=== PATIENT | female | born 1995 | race Caucasian/White ===

== ENCOUNTER 2019-08-21 10:11 | Emergency (ER) | payer SELFPAY ==
[~2019-08-21] VITALS: Ht 152.4 cm; Wt 57.2 kg
[2019-08-21 10:15] VITALS: BP 137/92
--- NOTE | 2019-08-21 10:22 | NUR ---
patient arrives to er , not sure how far along. she was at ob upstairs yesterday and had pap which showed light bleeding. then went home but bleeding got worse last night, she reports ben red blood about 1 pad an hour since last night.
--- NOTE | 2019-08-21 10:25 | NUR ---
ob is concerned that patient has blighted ovum
[2019-08-21] MEDS ORDERED: DIAZ10TA4 PO (10:29)
[2019-08-21] MEDS ORDERED: BUPR-86 PO (10:29)
--- NOTE | 2019-08-21 10:52 | NUR ---
straight cath'd patient and sent to lab labeled in her presence. patient has significant bleeding noted in [place] area.
--- NOTE | 2019-08-21 11:12 | NUR ---
patient off to ultrasound with tech
[2019-08-21 11:25] LABS: MICROSCOPIC NOT IND
[2019-08-21 11:32] LABS: BASOPHILS # (AUTO) 0.09 x10^3/uL (0-0.1); BASOPHILS % (AUTO) 1 % (0-1); EOSINOPHILS # (AUTO) 0.01 x10^3/uL (0-0.4); EOSINOPHILS % (AUTO) 0 % (1-7); LYMPHOCYTES # (AUTO) 1.34 x10^3/uL (1-3.4); LYMPHOCYTES % (AUTO) 9 % (22-44); MD NO; MEAN CORPUSCULAR HGB CONC 33.6 g/dL (32.4-35.8); MEAN CORPUSCULAR VOLUME 89.3 fL (80-100); MEAN PLATELET VOLUME 7.8 fL (7.4-10.4); MONOCYTES # (AUTO) 0.77 x10^3/uL (0.2-0.8); MONOCYTES % (AUTO) 5 % (2-9); NEUTROPHILS % (AUTO) 85 % (42-75); PLATELET COUNT 507 x10^3/uL (130-400); RED BLOOD COUNT 4.75 x10^6/uL (3.82-5.3); RED CELL DISTRIBUTION WIDTH 12.8 % (9.6-15.2)
[2019-08-21 11:33] LABS: CULTURE INDICATED? NO
[2019-08-21 11:42] LABS: ALBUMIN 3.9 g/dL (3.4-5.0); ANION GAP 6 mmol/L (5-15); CALCIUM 8.6 mg/dL (8.5-10.1); CHLORIDE 105 mmol/L (98-107)
[2019-08-21 12:00] LABS: ALANINE AMINOTRANSFERASE 21 U/L (12-78); ALKALINE PHOSPHATASE 78 U/L (45-117); BILIRUBIN,TOTAL 0.5 mg/dL (0.2-1.0); CREATININE 0.87 mg/dL (0.55-1.02); TOTAL PROTEIN 8.1 g/dL (6.4-8.2)
--- NOTE | 2019-08-21 12:38 | NUR ---
Patient/Caregiver given discharge instructions and they have confirmed that they understand the instructions. Patient ambulatory with steady gait.
== END 2019-08-21 12:47 | disposition home or self-care (01) ==
LOC: ED 12:41
DX: O46.90 Antepartum hemorrhage, unspecified, unspecified trimester (principal); Z3A.00 Weeks of gestation of pregnancy not specified
CPT/HCPCS: 36415; 76801; 80053; 81003; 84702; 85025; 99284

== ENCOUNTER 2020-04-26 15:51 | Emergency (ER) | payer OTHER ==
[~2020-04-26] VITALS: Ht 152.4 cm; Wt 55.4 kg
[~2020-04-26 15:51] MED LIST: BUPR-86 PO; DIAZ10TA4 PO
--- NOTE | 2020-04-26 16:19 | NUR ---
C/O MORNING SICKNESS WITH N/V X1 WEEK, 9 WEEKS , STATES SHE'S WORSEN OVER THE LAST 4 DAYS.
[2020-04-26] MEDS ORDERED: SODIUM CHLORIDE 0.9% 1,000ML IVBOLUS ONE (16:30)
[2020-04-26] MEDS ORDERED: ONDANSETRON 2MG/ML, 2ML IVPush ONE (16:30)
[2020-04-26] MEDS ORDERED: ONDANSETRON 2MG/ML, 2ML ONE (16:36)
[2020-04-26 16:44] LABS: BASOPHILS % (AUTO) 0 % (0-1); EOSINOPHILS % (AUTO) 0 % (1-7); LYMPHOCYTES % (AUTO) 11 % (22-44); MEAN CORPUSCULAR HEMOGLOBIN 28.5 pg (27.0-34.8); MEAN CORPUSCULAR HGB CONC 33.3 g/dL (32.4-35.8); MEAN PLATELET VOLUME 7.5 fL (7.4-10.4); MONOCYTES % (AUTO) 6 % (2-9); NEUTROPHILS % (AUTO) 82 % (42-75); PLATELET COUNT 530 x10^3/uL (130-400); RED CELL DISTRIBUTION WIDTH 12.5 % (9.6-15.2)
[2020-04-26 16:51] LABS: ALANINE AMINOTRANSFERASE 34 U/L (12-78); ALBUMIN 3.8 g/dL (3.4-5.0); ANION GAP 11 mmol/L (5-15); CALCIUM 9.5 mg/dL (8.5-10.1); CHLORIDE 103 mmol/L (98-107); CREATININE 0.64 mg/dL (0.55-1.02)
[2020-04-26 16:58] LABS: MICROSCOPIC INDICATED
[2020-04-26 17:05] LABS: MD SCAN
[2020-04-26 17:09] LABS: ALKALINE PHOSPHATASE 72 U/L (45-117); BILIRUBIN,TOTAL 0.5 mg/dL (0.2-1.0); TOTAL PROTEIN 8.2 g/dL (6.4-8.2)
[2020-04-26 18:23] LABS: MICROSCOPIC NOT IND
[2020-04-26 19:00] VITALS: BP 92/55
== END 2020-04-26 19:24 | disposition home or self-care (01) ==
LOC: ED 19:00
DX: O21.1 Hyperemesis gravidarum with metabolic disturbance (principal); R94.31 Abnormal electrocardiogram [ECG] [EKG]; Z3A.09 9 weeks gestation of pregnancy
CPT/HCPCS: 36415; 76801; 80053; 81001; 81003; 84702; 85025; 87086; 93005; 96361; 96374; 99285; J2405; J7030

== ENCOUNTER 2020-11-17 22:19 | Inpatient (IN) | payer OTHER ==
[~2020-11-17] VITALS: Ht 153.2 cm; Wt 77.0 kg
[2020-11-17] MEDS ORDERED: NEWBORN KIT ONE (22:43)
[2020-11-17] MEDS ORDERED: LIDOCAINE 1%, 20ML ONE (22:43)
[2020-11-17] MEDS ORDERED: MISOPROSTOL 200 MCG TABLET ONE (22:44)
[2020-11-17] MEDS ORDERED: OXYTOCIN 30U/ 0.9% NaCL 500ML 500 ML ONE (22:44)
[2020-11-17] MEDS ORDERED: FENTANYL PF 100 MCG/2ML ONE (22:55)
[2020-11-17] MEDS ORDERED: FENTANYL PF 100 MCG/2ML IV PRN (23:00)
[2020-11-17] MEDS ORDERED: LACTATED RINGERS 1,000 ML IV SCH (23:00)
[2020-11-17] MEDS ORDERED: SODIUM CHLORIDE FLUSH 10ML SYR IVF PRN (23:00)
[2020-11-17] MEDS ORDERED: CALCIUM CARBONATE 500 MG TAB.CHEW PO PRN (23:00)
[2020-11-17] MEDS ORDERED: ALUMINUM/MAG/SIMETHICONE 30 ML UDC PO PRN (23:00)
[2020-11-17] MEDS ORDERED: ONDANSETRON 2MG/ML, 2ML IVPush PRN (23:00)
[2020-11-17] MEDS: PLEASE ENTER HEIGHT AND WEIGHT MC SCH (23:00)
[2020-11-17] MEDS ORDERED: METOCLOPRAMIDE 5 MG/ML, 2ML IVPush PRN (23:00)
[2020-11-17] MEDS ORDERED: SODIUM CITRATE/CITRIC ACID 30 ML UDC PO PRN (23:00)
[2020-11-17] MEDS ORDERED: FENTANYL PF 100 MCG/2ML IVPush PRN (23:00)
[2020-11-17] MEDS ORDERED: D5%-LACTATED RINGERS 1,000 ML IV SCH (23:00)
[2020-11-17] MEDS ORDERED: TERBUTALINE 1 MG/ML, 1ML IVPush PRN (23:00)
[2020-11-17] MEDS ORDERED: OXYTOCIN 30U/ 0.9% NaCL 500ML 500 ML IV ONE (23:00)
[2020-11-17] MEDS ORDERED: TERBUTALINE 1 MG/ML, 1ML SQ PRN (23:00)
[2020-11-17 23:12] LABS: BASOPHILS % (AUTO) 0 % (0-1); EOSINOPHILS % (AUTO) 0 % (1-7); LYMPHOCYTES % (AUTO) 13 % (22-44); MEAN CORPUSCULAR HEMOGLOBIN 28.7 pg (27.0-34.8); MEAN CORPUSCULAR HGB CONC 33.5 g/dL (32.4-35.8); MEAN PLATELET VOLUME 8.1 fL (7.4-10.4); MONOCYTES % (AUTO) 7 % (2-9); NEUTROPHILS % (AUTO) 79 % (42-75); PLATELET COUNT 365 x10^3/uL (130-400); RED BLOOD COUNT 3.98 x10^6/uL (3.82-5.3); RED CELL DISTRIBUTION WIDTH 13.1 % (9.6-15.2)
[2020-11-17 23:13] LABS: MD NO
[2020-11-17] MEDS ORDERED: FENTANYL/BUPIV./NS/PF 250 ML EPIDCONT ONE (23:36)
[2020-11-17] MEDS ORDERED: BUPIVACAINE 0.25% ONE (23:36)
[2020-11-18] MEDS ORDERED: EPHEDRINE 50 MG/ML, 1ML IVPush PRN
[2020-11-18] MEDS ORDERED: NALOXONE 0.4 MG/ML, 1ML IVPush PRN
[2020-11-18] MEDS ORDERED: LACTATED RINGERS 1,000 ML IVBOLUS PRN
[2020-11-18] MEDS ORDERED: FENTANYL/BUPIV./NS/PF 250 ML EPIDCONT SCH
[2020-11-18] MEDS: OXYTOCIN 30U/ 0.9% NaCL 500ML 500 ML IV SCH ×3 (00:40→21:00)
[2020-11-18] MEDS ORDERED: ONDANSETRON 2MG/ML, 2ML IV PRN (01:00)
[2020-11-18] MEDS ORDERED: MISOPROSTOL 200 MCG TABLET PR PRN (01:00)
[2020-11-18] MEDS ORDERED: ACETAMINOPHEN 325 MG TABLET PO PRN (01:00)
[2020-11-18] MEDS ORDERED: METHYLERGONOVINE 0.2 MG/ML IM PRN (01:00)
[2020-11-18] MEDS ORDERED: OXYcodone/APAP 5/325MG TABLET PO PRN ×2 (01:00)
[2020-11-18] MEDS ORDERED: SIMETHICONE 80 MG CHEW TAB PO PRN (01:00)
[2020-11-18 03:00] VITALS: BP 117/76
[2020-11-18 07:00] VITALS: BP 107/70
[2020-11-18] MEDS: PLEASE ENTER HEIGHT AND WEIGHT MC SCH ×3 (07:00→23:00)
[2020-11-18 07:35] VITALS: BP 111/75
[2020-11-18] MEDS: LACTATED RINGERS 1,000 ML IV SCH ×3 (08:00→16:00)
[2020-11-18] MEDS: DOCUSATE 100 MG CAPSULE PO PRN (08:00)
[2020-11-18] MEDS: PRENATAL VIT/IRON/FA 1 EACH TABLET PO SCH (08:00)
[2020-11-18] MEDS: IBUPROFEN 800 MG TABLET PO PRN ×2 (08:00→15:36)
[2020-11-18 08:53] LABS: BASOPHILS % (AUTO) 0 % (0-1); EOSINOPHILS % (AUTO) 0 % (1-7); LYMPHOCYTES % (AUTO) 12 % (22-44); MEAN CORPUSCULAR HGB CONC 33.6 g/dL (32.4-35.8); MEAN PLATELET VOLUME 8.2 fL (7.4-10.4); MONOCYTES % (AUTO) 7 % (2-9); NEUTROPHILS % (AUTO) 81 % (42-75); PLATELET COUNT 316 x10^3/uL (130-400); RED BLOOD COUNT 3.63 x10^6/uL (3.82-5.3); RED CELL DISTRIBUTION WIDTH 13.1 % (9.6-15.2)
[2020-11-18 08:54] LABS: MD NO
[2020-11-18] MEDS ORDERED: MEASLES,MUMPS&RUBELLA VACC/PF 0.5 ML SQ-VACC ONE ×2 (09:19→10:00)
[2020-11-18 12:10] VITALS: BP 116/77
[2020-11-18 16:15] VITALS: BP 112/79
[2020-11-18 19:18] VITALS: BP 112/75
[2020-11-19] MEDS: LACTATED RINGERS 1,000 ML IV SCH
[2020-11-19] MEDS: DOCUSATE 100 MG CAPSULE PO PRN ×2 (04:15→08:53)
[2020-11-19] MEDS: IBUPROFEN 800 MG TABLET PO PRN (04:15)
[2020-11-19] MEDS: PLEASE ENTER HEIGHT AND WEIGHT MC SCH (07:00)
[2020-11-19] MEDS: OXYTOCIN 30U/ 0.9% NaCL 500ML 500 ML IV SCH (07:00)
[2020-11-19] MEDS ORDERED: IBUP-1223 PO (07:32)
[2020-11-19] MEDS ORDERED: BUPR-86 PO (07:32)
[2020-11-19 08:45] VITALS: BP 102/70
[2020-11-19] MEDS: PRENATAL VIT/IRON/FA 1 EACH TABLET PO SCH (08:53)
== END 2020-11-19 10:15 | disposition home or self-care (01) | DRG 807 ==
LOC: LDOP 22:19 → LDIP 22:42 → 2NW 11-18 02:42
PROVIDERS: ADMIT Obstetrics & Gynecology Maternal & Fetal Medicine; ATTEND Obstetrics & Gynecology Maternal & Fetal Medicine
PROC: 10E0XZZ Delivery of Products of Conception, External Approach (ICD-10-PCS; principal; 2020-11-18)
PROC: 0HQ9XZZ Repair Perineum Skin, External Approach (ICD-10-PCS; 2020-11-18)
PROC: 3E0R3BZ Introduction of Anesthetic Agent into Spinal Canal, Percutaneous Approach (ICD-10-PCS; 2020-11-18)
PROC: 00HU33Z Insertion of Infusion Device into Spinal Canal, Percutaneous Approach (ICD-10-PCS; 2020-11-18)
DX: O99.344 Other mental disorders complicating childbirth (principal); Z37.0 Single live birth; O99.02 Anemia complicating childbirth; O70.0 First degree perineal laceration during delivery; Z3A.38 38 weeks gestation of pregnancy; F32.9 Major depressive disorder, single episode, unspecified; F41.9 Anxiety disorder, unspecified; Z20.822 Contact with and (suspected) exposure to COVID-19; D50.9 Iron deficiency anemia, unspecified
CPT/HCPCS: 36415; 85025; 86592; 86850; 86900; 87635; 90707; G0378; J3010; J2590; J7120